=== PATIENT | female | born 1995 | race African-American/Black ===

== ENCOUNTER 2016-06-15 22:03 | Emergency (ER) | payer OTHER ==
[~2016-06-15] VITALS: Ht 160 cm; Wt 64.4 kg
[~2016-06-15 22:03] MED LIST: ALBUTEROL SULF8.5 GM INH; AZITHROMYCIN250 MG PO
--- NOTE | 2016-06-15 23:03 | Emergency Room Report ---
History of Present Illness General Chief Complaint: Pain Source: Patient Present Illness HPI Ankle pain for 3 days. No meds taken no trauma. 7/10, aching, mainly when ambulating or twisting/stressing. Worse when standing. No fever. Never before. No rashes. No calf swelling or tenderness. No meds taken. Not . No NVD, dysuria. Allergies: Coded Allergies: No Known Allergies (Unverified , 12/30/11) Patient History Past Medical History: see triage record Pertinent Family History: other - no gout Social History Narrative student Last Menstrual Period: 05/17/16 Now: No Reviewed Nursing Documentation: PMH: Agreed, PSxH: Agreed Nursing Documentation-PMH Past Medical History: No Stated History Review of Systems All Other Systems: negative except mentioned in HPI Physical Exam Vital Signs Date Time Temp Pulse Resp B/P Pulse Ox O2 Delivery O2 Flow Rate FiO2 06/15/16 22:36 98.2 62 16 101/57 100 Room Air General Appearance: well appearing, no apparent distress Head: normocephalic, atraumatic Eyes: bilateral eye PERRL, bilateral eye normal inspection ENT: hearing grossly normal, normal voice, moist mucus membranes Neck: full range of motion, supple Respiratory: no respiratory distress, speaking full sentences Musculoskeletal: digits/nails normal, normal range of motion, no calf tenderness, pelvis stable, other - tenderness lateral maleolus. No 5th MT tenderness. No point tend and able to ambulate Neurologic: alert, normal gait Psychiatric: mood/affect normal Skin: no rash, other - no warmth martell joint Medical Decision Making Diagnostic Impression: Primary Impression: Right ankle pain Qualified Codes: M25.571 - Pain in right ankle and joints of right foot ER Course Patient presents with non-traumatic ankle pain. Ddx: sprain, tendonitis. Exam against fracture or neuroma. Based on Darke ankle rules, no x-ray indicated. No risk of gout. No evidence of cellulitis. Air splint applied by tech. Position excellent with improvement. Neurovasc checked by me and normal. Patient stable for outpatient observation and treatment. Last Vital Signs Date Time Temp Pulse Resp B/P Pulse Ox O2 Delivery O2 Flow Rate FiO2 06/15/16 23:20 98.2 72 16 110/58 100 Room Air Status: improved Disposition: HOME, SELF-CARE Condition: Improved Scripts Acetaminophen (Tylenol) 325 Mg Tablet 650 MG ORAL Q6H Y for Prn Pain/Headache/Temp > 101, #30 TAB 0 Refills Prov: Tutu Lazcano M.D. 06/15/16 Ibuprofen* (MOTRIN*) 600 Mg Tablet 600 MG ORAL Q6H Y for For Pain, #20 TAB Prov: Tutu Lazcano M.D. 06/15/16 Tutu Lazcano M.D. Jun 15, 2016 23:03
[2016-06-15] MEDS ORDERED: IBUPROFEN600 MG ORAL (23:07)
[2016-06-15] MEDS ORDERED: TYLENOL325 MG ORAL (23:07)
[2016-06-15 23:15] VITALS: BP 110/58
[2016-06-15 23:20] VITALS: BP 110/58
== END 2016-06-15 23:20 | disposition home or self-care (01) ==
LOC: EMR 23:08
DX: M25.571 Pain in right ankle and joints of right foot (principal)
CPT/HCPCS: 29540; 99284

== ENCOUNTER 2016-10-01 20:34 | Emergency (ER) | payer OTHER ==
[~2016-10-01] VITALS: Ht 160 cm; Wt 65.8 kg
[~2016-10-01 20:34] MED LIST changes: +IBUPROFEN600 MG ORAL; +KEFLEX500 MG ORAL; +NITROFURANTOIN100 M2 ORAL; +TYLENOL325 MG ORAL
[2016-10-01] MEDS ORDERED: NKM (20:48)
--- NOTE | 2016-10-01 20:57 | Emergency Room Report ---
History of Present Illness General Chief Complaint: General Complaint Source: Patient Present Illness HPI The patient presents with a lump in her right hand. It's been there for about 30 days. It's painful when it's touched. She's been taking ibuprofen. She denies any trauma. No fevers or rash. No numbness. Pain 8/10. Worse when touched and dependent. She is right-handed. Last period was September 07. No NVD, dysuria, chest or abdominal pain. No lymph node swelling. Allergies: Coded Allergies: No Known Allergies (Unverified , 12/30/11) Patient History Past Medical History: see triage record Social History: Denies: smoking Social History Narrative home Last Menstrual Period: September 07, 2016 Now: No Reviewed Nursing Documentation: PMH: Agreed, PSxH: Agreed Nursing Documentation-PMH Past Medical History: No Stated History Review of Systems Constitutional: Denies: fever Musculoskeletal: Reports: see HPI Skin: Reports: see HPI Neurological: Reports: see HPI All Other Systems: negative except mentioned in HPI Physical Exam Vital Signs Date Time Temp Pulse Resp B/P Pulse Ox O2 Delivery O2 Flow Rate FiO2 10/01/16 20:43 98.2 62 17 105/60 99 Room Air Sp02 EP Interpretation: reviewed, normal General Appearance: well appearing, no apparent distress Head: normocephalic, atraumatic Eyes: bilateral eye PERRL, bilateral eye normal inspection ENT: hearing grossly normal, normal voice, moist mucus membranes Neck: full range of motion, supple Respiratory: no respiratory distress, speaking full sentences Musculoskeletal: digits/nails normal, gait/station normal, normal range of motion, other - Nodule on the radial side of the index middle carpal. Does not appear attached to the tendon. Slight tender to palpation Neurologic: alert, motor strength/tone normal, sensory intact, normal gait Psychiatric: mood/affect normal Skin: no rash Medical Decision Making Diagnostic Impression: Primary Impression: Neuroma ER Course Patient presents with a nodule in the right hand. For 30 days. Doesn't appear attached to the tendon. Differential includes neuroma, bony abnormality, hematoma amongst others.. This does not appear infectious. We'll obtain an x- ray. She will be given motrin. Xray normal. Improved with treatment. Stable for outpatient observation and treatment Other X-Ray Diagnostic Results X-Ray ordered: hand # of Views/Limited Vs Complete: 3 View EP Interpretation: Yes Interpretation: no fractures, no dislocation, no soft tissue swelling Indication: Pain Impression: No acute disease Interpreting ER Provider: Electronically signed by Tutu Lazcano MD Last Vital Signs Date Time Temp Pulse Resp B/P Pulse Ox O2 Delivery O2 Flow Rate FiO2 10/01/16 22:13 98.2 17 105/60 99 Room Air 10/01/16 20:43 62 Status: improved Disposition: HOME, SELF-CARE Condition: Improved Scripts Acetaminophen With Codeine (T#3) (TYLENOL #3 TAB*) Y Tab 1 TAB ORAL Q8H Y for For Pain, #10 TAB Prov: Tutu Lazcano M.D. 10/01/16 Ibuprofen* (MOTRIN*) 600 Mg Tablet 600 MG ORAL Q6H Y for For Pain, #20 TAB Prov: Tutu Lazcano M.D. 10/01/16 Tutu Lazcano M.D. Oct 01, 2016 20:57
[2016-10-01] MEDS ORDERED: ACETAMINOPHEN-1 EAC1 ORAL (22:04)
[2016-10-01] MEDS ORDERED: IBUPROFEN600 MG ORAL (22:04)
[2016-10-01 22:13] VITALS: BP_SYST 1; BP_SYST 105; BP_DIAS 1; BP_DIAS 60
--- NOTE | 2016-10-02 09:31 | Diagnostic Imaging Report ---
Indications: Nontraumatic right hand pain, lump adjacent to second metacarpal Technique: 3 views of the right hand. Findings: Comparison: None. No fracture, dislocation, lytic destruction, periosteal reaction, surrounding soft tissue swelling, or other acute changes are demonstrated. No deformity, alignment abnormality, arthritic change, soft tissue calcification, or other chronic changes are demonstrated. IMPRESSION: Negative right hand series.
== END 2016-10-01 22:10 | disposition home or self-care (01) ==
LOC: EMR 21:11
DX: D36.10 Benign neoplasm of peripheral nerves and autonomic nervous system, unspecified (principal)
CPT/HCPCS: 99284

== ENCOUNTER 2017-02-21 18:30 | Emergency (ER) | payer OTHER ==
[~2017-02-21] VITALS: Ht 160 cm; Wt 68.0 kg
[~2017-02-21 18:30] MED LIST changes: +ACETAMINOPHEN-1 EAC1 ORAL; +NKM
[2017-02-21 18:33] VITALS: BP 110/66
--- NOTE | 2017-02-21 19:02 | Emergency Room Report ---
History of Present Illness General Chief Complaint: Abdominal Pain Source: Patient Present Illness HPI 21-year-old female with no sig pmhx p/w nausea vomiting diarrhea States that she had 2 episodes of vomiting 2 days ago, nonbilious nonbloody, also had diarrhea Is complaining of burning epigastric pain after vomiting, intermittent. No relieving or exacerbating factors. Severity is 5/10. Denies fever, chills. No hx of abdominal surgeries. No hx of endoscopies/colonoscopies. No recent travel and no recent antibiotic use Allergies: Coded Allergies: No Known Allergies (Unverified , 12/30/11) Patient History Past Medical History: see triage record Past Surgical History: none Pertinent Family History: none Last Menstrual Period: 02/12/17 Now: No : 0 Reviewed Nursing Documentation: PMH: Agreed, PSxH: Agreed Nursing Documentation-PMH Past Medical History: No Stated History Review of Systems All Other Systems: negative except mentioned in HPI Physical Exam Vital Signs Date Time Temp Pulse Resp B/P (MAP) Pulse Ox O2 Delivery O2 Flow Rate FiO2 02/21/17 18:33 98.1 65 18 110/66 98 Room Air Sp02 EP Interpretation: reviewed, normal General Appearance: normal inspection, well appearing, no apparent distress, alert, GCS 15, non-toxic Head: normocephalic, atraumatic Eyes: bilateral eye normal inspection, bilateral eye PERRL, bilateral eye EOMI ENT: normal ENT inspection, normal pharynx, normal voice, moist mucus membranes Neck: normal inspection, full range of motion, supple Respiratory: normal inspection, lungs clear, normal breath sounds, no respiratory distress, no retraction, no wheezing, speaking full sentences, chest symmetrical Cardiovascular #1: normal inspection, regular rate, rhythm, no edema, normal capillary refill Cardiovascular #2: 2+ radial (R), 2+ radial (L) Gastrointestinal: normal inspection, non tender, soft, non-distended, no guarding Musculoskeletal: normal inspection, back normal, normal range of motion, non- tender Neurologic: normal inspection, alert, oriented x3, responsive, motor strength/ tone normal, sensory intact, normal gait, speech normal Psychiatric: normal inspection, judgement/insight normal, memory normal Skin: normal inspection, normal color, no rash, warm/dry, well hydrated, normal turgor Medical Decision Making Diagnostic Impression: Primary Impression: Nausea vomiting and diarrhea Additional Impression: Urinary tract infection ER Course 21-year-old female nausea vomiting diarrhea Differential Diagnosis: Gastritis, gastroenteritis, UTI/pyelo At this time abdomen is soft nontender, not likely to have acute intra- abdominal surgical pathology, will hold CT Plan: Basic labs, ua, ekg IVF ER course: Patient has remained stable during ED stay. Pain improved. Repeat abdominal exam is nontender. Tolerating PO +UTI on labs Disposition: Patient is to be discharged to home with macrobid Patient is instructed to follow up with their primary care doctor within 5 days. Strict return precautions discussed with patient such as fever, chills, worsening/severe abdominal pain, nausea, vomiting, black or bloody stools, which may indicate severe illness. Patient verbalizes understanding and agrees with plan. Please note that this Emergency Department Report was dictated using [employer] inspector technology software, occasionally this can lead to erroneous entry secondary to interpretation by the dictation equipment Rhythm Strip EP Interpretation: Yes Rate: 56 Rhythm: NSR, no PVCs, no ectopy Laboratory Tests Test 02/21/17 19:00 02/21/17 19:08 Urine Color Yellow Urine Appearance Slightly cloudy Urine pH 6 (4.5-8.0) Urine Specific Anselmo 1.020 (1.005-1.035) Urine Protein 1+ (NEGATIVE) H Urine Glucose (UA) Negative (NEGATIVE) Urine Ketones Negative (NEGATIVE) Urine Occult Blood Negative (NEGATIVE) Urine Nitrite Negative (NEGATIVE) Urine Bilirubin Negative (NEGATIVE) Urine Urobilinogen 1 MG/DL (0.0-1.0) H Urine Leukocyte Esterase 3+ (NEGATIVE) H Urine RBC 2-4 /HPF (0 - 2) H Urine WBC 15-20 /HPF (0 - 2) H Urine Squamous Epithelial Cells Moderate /LPF (NONE/OCC) H Urine Bacteria Moderate /HPF (NONE) H Urine HCG, Qualitative Negative White Blood Count 5.5 K/UL (4.8-10.8) Red Blood Count 4.53 M/UL (4.20-5.40) Hemoglobin 12.8 G/DL (12.0-16.0) Hematocrit 40.8 % (37.0-47.0) Mean Corpuscular Volume 90 FL (80-99) Mean Corpuscular Hemoglobin 28.3 PG (27.0-31.0) Mean Corpuscular Hemoglobin Concent 31.4 G/DL (32.0-36.0) L Red Cell Distribution Width 10.9 % (11.6-14.8) L Platelet Count 301 K/UL (150-450) Mean Platelet Volume 4.7 FL (6.5-10.1) L Neutrophils (%) (Auto) 55.9 % (45.0-75.0) Lymphocytes (%) (Auto) 28.2 % (20.0-45.0) Monocytes (%) (Auto) 13.7 % (1.0-10.0) H Eosinophils (%) (Auto) 0.5 % (0.0-3.0) Basophils (%) (Auto) 1.7 % (0.0-2.0) Sodium Level 142 MMOL/L (136-145) Potassium Level 4.1 MMOL/L (3.5-5.1) Chloride Level 105 MMOL/L (98-107) Carbon Dioxide Level 30 MMOL/L (21-32) Anion Gap 7 mmol/L (5-15) Blood Urea Nitrogen 11 mg/dL (7-18) Creatinine 1.1 MG/DL (0.55-1.30) Estimate Glomerular Filtration Rate > 60 mL/min (>60) Glucose Level 82 MG/DL (74-106) Calcium Level 8.8 MG/DL (8.5-10.1) Total Bilirubin 0.3 MG/DL (0.2-1.0) Aspartate Amino Transferase (AST) 18 U/L (15-37) Alanine Aminotransferase (ALT) 19 U/L (12-78) Alkaline Phosphatase 48 U/L (46-116) Total Protein 7.6 G/DL (6.4-8.2) Albumin 3.5 G/DL (3.4-5.0) Globulin 4.1 g/dL Albumin/Globulin Ratio 0.9 (1.0-2.7) L Lipase 160 U/L (73-393) Last Vital Signs Date Time Temp Pulse Resp B/P (MAP) Pulse Ox O2 Delivery O2 Flow Rate FiO2 02/21/17 18:33 98.1 65 18 110/66 98 Room Air Disposition: HOME, SELF-CARE Condition: Improved Scripts Nitrofurantoin Monohyd/M-Cryst* (MACROBID 100 MG*) 100 Mg Capsule 100 MG ORAL EVERY 12 HOURS for 7 Days, #21 CAP 0 Refills Prov: Isrrael Gavin M.D. 02/21/17 Isrrael Gavin M.D. Feb 21, 2017 19:02
[2017-02-21 19:24] LABS: BASOPHILS % (AUTO) 1.7 % (0.0-2.0); EOSINOPHILS % (AUTO) 0.5 % (0.0-3.0); LYMPHOCYTES % (AUTO) 28.2 % (20.0-45.0); MEAN CORPUSCULAR HEMOGLOBIN 28.3 PG (27.0-31.0); MEAN CORPUSCULAR HGB CONC 31.4 G/DL (32.0-36.0); MEAN CORPUSCULAR VOLUME 90 FL (80-99); MEAN PLATELET VOLUME 4.7 FL (6.5-10.1); MONOCYTES % (AUTO) 13.7 % (1.0-10.0); NEUTROPHILS % (AUTO) 55.9 % (45.0-75.0); PLATELET COUNT 301 K/UL (150-450); RED BLOOD COUNT 4.53 M/UL (4.20-5.40); RED CELL DISTRIBUTION WIDTH 10.9 % (11.6-14.8); WHITE BLOOD COUNT 5.5 K/UL (4.8-10.8)
[2017-02-21 19:29] LABS: APPEARANCE,URINE SLIGHTLY CLOUDY; KETONES,URINE NEGATIVE (NEGATIVE); LEUKOCYTE ESTERASE ,URINE 3+ (NEGATIVE); NITRITE,URINE NEGATIVE (NEGATIVE); PH,URINE 6 (4.5-8.0); PROTEIN,URINE 1+ (NEGATIVE); UROBILINOGEN,URINE 1 MG/DL (0.0-1.0)
[2017-02-21 19:34] LABS: ANION GAP 7 mmol/L (5-15); CALCIUM 8.8 MG/DL (8.5-10.1); CARBON DIOXIDE 30 MMOL/L (21-32); CHLORIDE 105 MMOL/L (98-107); CREATININE 1.1 MG/DL (0.55-1.30); GLOMERULAR FILTRATION RATE > 60 mL/min (>60); POTASSIUM 4.1 MMOL/L (3.5-5.1); SODIUM 142 MMOL/L (136-145)
[2017-02-21 19:41] LABS: ALANINE AMINOTRANSFERASE 19 U/L (12-78); ALBUMIN/GLOBULIN RATIO 0.9 (1.0-2.7); ASPARTATE AMINO TRANSFERASE 18 U/L (15-37); LIPASE 160 U/L (73-393); TOTAL PROTEIN 7.6 G/DL (6.4-8.2)
[2017-02-21 19:44] LABS: WBC,URINE 15-20 /HPF (0 - 2)
[2017-02-21 19:45] VITALS: BP 106/62
[2017-02-21 19:45] LABS: BACTERIA,URINE MODERATE /HPF; SQUAMOUS EPITHELIAL CELL,UR MODERATE /LPF (NONE/OCC)
[2017-02-21] MEDS ORDERED: NITROFURANTOIN100 M2 ORAL (19:48)
[2017-02-21 20:23] VITALS: BP 106/72
== END 2017-02-21 20:23 | disposition home or self-care (01) ==
LOC: EMR 19:11
DX: R11.2 Nausea with vomiting, unspecified (principal); R19.7 Diarrhea, unspecified; N39.0 Urinary tract infection, site not specified
CPT/HCPCS: 36415; 80053; 81003; 81025; 83690; 85025; 87086; 96374; 99284

== ENCOUNTER 2017-03-19 15:46 | Emergency (ER) | payer OTHER ==
[~2017-03-19] VITALS: Ht 160 cm; Wt 68.0 kg
[2017-03-19 16:00] VITALS: BP 111/72
--- NOTE | 2017-03-19 16:17 | Emergency Room Report ---
History of Present Illness General Chief Complaint: Sore Throat Source: Patient Present Illness HPI 21 YO Female presents to the ED c/o cough x 3 weeks intermittent in nature, 7/ 10 in severity Sore throat, nasal congestion x2 days with associated chills denies fevers reports cousin has similar symptoms denies recent travel denies neck pain or stiffness denies nausea vomiting photophobia or productive sputum. Up to vaccinations. Denies CP, Palpitations, LOC, AMS, dizziness, Changes in Vision, Sensation, paresthesias, or a sudden severe headache. Allergies: Coded Allergies: No Known Allergies (Unverified , 12/30/11) Patient History Past Medical History: see triage record Past Surgical History: none Pertinent Family History: none Last Menstrual Period: 03/17/17 Immunizations: UTD Reviewed Nursing Documentation: PMH: Agreed, PSxH: Agreed Nursing Documentation-PMH Past Medical History: No Stated History Review of Systems All Other Systems: negative except mentioned in HPI Physical Exam Vital Signs Date Time Temp Pulse Resp B/P (MAP) Pulse Ox O2 Delivery O2 Flow Rate FiO2 03/19/17 15:53 98.1 85 18 111/72 98 Room Air Sp02 EP Interpretation: reviewed, normal General Appearance: no apparent distress, alert, GCS 15, non-toxic Head: normocephalic, atraumatic Eyes: bilateral eye normal inspection, bilateral eye PERRL ENT: hearing grossly normal, normal pharynx, no angioedema, normal voice, TMs + canals normal, uvula midline, moist mucus membranes, nasal congestion, pharyngeal erythema Neck: full range of motion, no meningismus, no bony tend Respiratory: chest non-tender, lungs clear, normal breath sounds, speaking full sentences Cardiovascular #1: regular rate, rhythm Rectal: deferred Musculoskeletal: back normal, gait/station normal, normal range of motion, non- tender Neurologic: alert, oriented x3, responsive, motor strength/tone normal, sensory intact, speech normal Skin: normal color, no rash, warm/dry, well hydrated Lymphatic: no adenopathy Medical Decision Making PA Attestation Dr. Gavin is my supervising Physician whom patient management has been discussed with. Diagnostic Impression: Primary Impression: Upper respiratory infection Qualified Codes: J06.9 - Acute upper respiratory infection, unspecified; B97.89 - Other viral agents as the cause of diseases classified elsewhere ER Course 21 YO Female presents to the ED c/o cough x 3 weeks intermittent in nature, 7/ 10 in severity Sore throat, nasal congestion x2 days with associated chills denies fevers reports cousin has similar symptoms denies recent travel denies neck pain or stiffness denies nausea vomiting photophobia or productive sputum. Up to vaccinations. Denies CP, Palpitations, LOC, AMS, dizziness, Changes in Vision, Sensation, paresthesias, or a sudden severe headache. Ddx considered but are not limited to URI, pneumonia, PE, strep pharyngitis, meningitis. Vital signs: Pt. is afebrile, the remaining VS are WNL H&PE are most consistent with URI- no meningeal signs, oropharynx is not involved, no evidence of bacterial infection at this time. ORDERS: none required at this time, the diagnosis is clinical ED INTERVENTIONS: None required at this time. DISCHARGE: At this time pt. is stable for d/c to home. Will provide printed patient care instructions, and any necessary prescriptions. Care plan and follow up instructions have been discussed with the patient prior to discharge. Last Vital Signs Date Time Temp Pulse Resp B/P (MAP) Pulse Ox O2 Delivery O2 Flow Rate FiO2 03/19/17 15:53 98.1 85 18 111/72 98 Room Air Disposition: HOME, SELF-CARE Condition: Stable Scripts Acetaminophen* (TYLENOL EXTRA STRENGTH*) 500 Mg Tablet 500 MG ORAL Q6H, #20 TAB 0 Refills Prov: Kalli Fierro P.A. 03/19/17 Loratadine (CLARITIN) 10 Mg Tab.rapdis 10 MG ORAL DAILY, #14 TAB Prov: Kalli Fierro P.A. 03/19/17 Benzonatate* (TESSALON PERLE*) 100 Mg Capsule 100 MG ORAL THREE TIMES A DAY, #20 PERLE Prov: Kalli Fierro P.A. 03/19/17 Codeine/Promethazine Hcl* (PROMETHAZINE-CODEINE SYRUP*) 118 Ml Syrup 5 ML ORAL Q6H Y for For Cough, #120 ML 0 Refills Prov: Kalli Fierro P.A. 03/19/17 Patient Instructions: Sore Throat, Upper Respiratory Infection, Adult, Easy-to- Read Additional Instructions: Take medications as directed. Follow up with a Primary Care Provider in 3-5 days, even if your symptoms have resolved. --Please review list of primary care clinics, if you do not already have a primary care provider Return sooner to ED if new symptoms occur, or current symptoms become worse. Do not drink alcohol, drive, or operate heavy machinery while taking Cough Syrup as this may cause drowsiness. - Please note that this Emergency Department Report was dictated using [employer] technology software, occasionally this can lead to erroneous entry secondary to interpretation by the dictation equipment. Klali Fierro Mar 19, 2017 16:17
[2017-03-19] MEDS ORDERED: CLARITIN10 M1 ORAL (16:19)
[2017-03-19] MEDS ORDERED: TESSALON PERLE100 MG ORAL (16:19)
[2017-03-19] MEDS ORDERED: TYLENOL EXTRA500 MG ORAL (16:19)
[2017-03-19] MEDS ORDERED: PROMETHAZINE-C118 M1 ORAL (16:19)
[2017-03-19 16:37] VITALS: BP 111/72
== END 2017-03-19 16:37 | disposition home or self-care (01) ==
LOC: EMR 16:26
DX: J06.9 Acute upper respiratory infection, unspecified (principal)
CPT/HCPCS: 99284

== ENCOUNTER 2017-05-11 11:28 | Emergency (ER) | payer OTHER ==
[~2017-05-11] VITALS: Ht 160 cm; Wt 65.8 kg
[~2017-05-11 11:28] MED LIST changes: +CLARITIN10 M1 ORAL; +PROMETHAZINE-C118 M1 ORAL; +TESSALON PERLE100 MG ORAL; +TYLENOL EXTRA500 MG ORAL
--- NOTE | 2017-05-11 12:13 | Emergency Room Report ---
History of Present Illness General Chief Complaint: Pain Source: Patient Present Illness HPI 21 yo female patient presents to ER complaining of left middle finger pain for "a few hours". Patient reports injury left hand but is unsure of mechanism of action. Patient reports finger began to become painful and swollen. Patient reports difficulty removing ring from hand secondary to swelling. Patient complains of pain with movement; decreased movement secondary to pain. Patient denies erythema, ecchymosis, no warmth to touch. Patient denies fever, chest pain, SOB, LOC. Allergies: Coded Allergies: No Known Allergies (Unverified , 12/30/11) Patient History Past Medical History: see triage record Last Menstrual Period: 04/20/17 Now: No Immunizations: UTD Reviewed Nursing Documentation: PMH: Agreed, PSxH: Agreed Nursing Documentation-PMH Past Medical History: No Stated History Review of Systems All Other Systems: negative except mentioned in HPI Physical Exam Vital Signs Date Time Temp Pulse Resp B/P (MAP) Pulse Ox O2 Delivery O2 Flow Rate FiO2 05/11/17 11:45 98.1 61 18 112/62 96 Room Air Sp02 EP Interpretation: reviewed, normal General Appearance: no apparent distress, alert, GCS 15, non-toxic Head: normocephalic, atraumatic Eyes: bilateral eye normal inspection, bilateral eye PERRL ENT: hearing grossly normal, normal pharynx, no angioedema, normal voice Neck: full range of motion, supple/symm/no masses Respiratory: chest non-tender, lungs clear, normal breath sounds, speaking full sentences Cardiovascular #1: regular rate, rhythm, no edema Cardiovascular #2: 2+ radial (R), 2+ radial (L) Musculoskeletal: back normal, digits/nails normal, gait/station normal, decreased range of motion - secondary to pain, swelling - left hand middle finger, other - NVI, cap refill <2seconds, tender - left hand middle finger PIP Neurologic: alert, oriented x3, responsive, motor strength/tone normal, sensory intact, speech normal Psychiatric: mood/affect normal Skin: normal color, no rash, warm/dry, well hydrated Medical Decision Making PA Attestation Dr. Hamilton is my supervising Physician whom patient management has been discussed with. Diagnostic Impression: Primary Impression: Finger fracture, right ER Course Pt. presents to the ED c/o left index finger pain. Ddx considered but are not limited to fracture, sprain, strain, contusion. Vital signs: are WNL, pt. is afebrile ORDERS: An X-ray of the left hand was ordered, results show fracture at base of middle phalanx of middle finger of left hand per the preliminary radiology report. ED INTERVENTIONS: Toradol Finger Splint was applied.The affected finger was checked afterwards by me showing good alignment and support with distal neurovascular functioning intact. DISCHARGE: -Rx provided for Ibuprofen for pain symptoms. At this time pt. is stable for d/c to home. Will provide printed patient care instructions, and any necessary prescriptions. Patient instructed to follow with primary care provider in 3 - 5 days and to request further orthopedic follow-up. Care plan and follow up instructions have been discussed with the patient prior to discharge. Patient instructed on TAVARES method: rest, ice, compression, elevation. Patient instructed to NWB. Take medications as directed. Patient questions asked and answered. ER precautions given, patient instructed to return to ER immediately for any new or worsening of symptoms. Other X-Ray Diagnostic Results Other X-Ray Diagnostic Results : X-Ray ordered: right hand # of Views/Limited Vs Complete: 3 View Indication: Pain EP Interpretation: Yes PA Xray: Interpretation reviewed, by supervising MD, and agrees with findings. Interpretation: no dislocation, other Impression: Other - fracture at base of middle phalanx of left ring finger PA Scribe Text Nicanor Berumen PA-C Last Vital Signs Date Time Temp Pulse Resp B/P (MAP) Pulse Ox O2 Delivery O2 Flow Rate FiO2 05/11/17 11:45 98.1 61 18 112/62 96 Room Air Disposition: HOME, SELF-CARE Condition: Stable Scripts Ibuprofen* (MOTRIN*) 600 Mg Tablet 600 MG ORAL Q8H Y for For Pain, #30 TAB 0 Refills Prov: Jaime Berumen 05/11/17 Patient Instructions: Finger Fracture, [id number] Additional Instructions: Patient instructed to follow up with primary care provider and discuss further referral to orthopedics. Patient instructed on RICE method: rest, ice, compression, elevation. Patient instructed to NWB. Take medications as directed. Patient questions asked and answered. ER precautions given, patient instructed to return to ER immediately for any new or worsening of symptoms. Jaime Berumen May 11, 2017 12:13
[2017-05-11] MEDS ORDERED: IBUPROFEN600 MG ORAL (13:14)
[2017-05-11] MEDS ORDERED: Ketorolac 30mg Inj IM ONE (13:30)
[2017-05-11 13:50] VITALS: BP 112/62
--- NOTE | 2017-05-11 13:57 | Diagnostic Imaging Report ---
Indication: Reason For Exam: PAIN Technique: 3 views left hand Comparison: none Findings: No acute fractures. No dislocations. Joint spaces are preserved. Impression: Negative
== END 2017-05-11 13:55 | disposition home or self-care (01) ==
LOC: EMR 12:36
DX: S62.623A Displaced fracture of middle phalanx of left middle finger, initial encounter for closed fracture (principal); X58.XXXA Exposure to other specified factors, initial encounter; Y92.9 Unspecified place or not applicable
CPT/HCPCS: 73130; 96372; 99283; J1885

== ENCOUNTER 2017-12-16 15:06 | Emergency (ER) | payer OTHER ==
[~2017-12-16] VITALS: Ht 160 cm; Wt 63.5 kg
[2017-12-16 15:38] VITALS: BP 101/65
--- NOTE | 2017-12-16 15:53 | Emergency Room Report ---
History of Present Illness General Chief Complaint: Female Urogenital Problems Source: Patient Present Illness HPI 30-year-old female with no past medical history here presenting malodorous clear vaginal discharge for the past few days. Denies new sexual partner and denies past positive STD denies dysuria or urinary frequency vaginal pruritus. Denies suprapubic tenderness, CVA tenderness, nausea vomiting, fever or chills, denies vaginal ulcers Allergies: Coded Allergies: No Known Allergies (Unverified , 12/30/11) Patient History Past Medical History: see triage record Past Surgical History: none Last Menstrual Period: 11/19/17 Now: No Reviewed Nursing Documentation: PMH: Agreed; PSxH: Agreed Nursing Documentation-PMH Past Medical History: No Stated History Review of Systems All Other Systems: negative except mentioned in HPI Physical Exam Vital Signs Date Time Temp Pulse Resp B/P (MAP) Pulse Ox O2 Delivery O2 Flow Rate FiO2 12/16/17 15:11 99.0 61 16 101/65 100 Room Air 99.0 Sp02 EP Interpretation: reviewed, normal General Appearance: normal inspection, well appearing, no apparent distress, alert Head: normocephalic Eyes: bilateral eye normal inspection, bilateral eye PERRL ENT: normal ENT inspection, hearing grossly normal Neck: normal inspection, full range of motion, supple Respiratory: normal inspection, chest non-tender, lungs clear, no wheezing Cardiovascular #1: normal inspection, no murmur Gastrointestinal: normal inspection, non tender, soft, no mass Rectal: deferred Genitourinary: no CVA tenderness, adnexa normal, ext genitalia/vag normal, other - clear discharge noted Musculoskeletal: normal inspection, back normal Neurologic: normal inspection, alert, oriented x3 Skin: normal inspection, normal color, no rash Lymphatic: normal inspection, no adenopathy Medical Decision Making PA Attestation all diagnosis and treatment plans are reviewed and discussed with my supervising physician Dr. Meza Diagnostic Impression: Primary Impression: Vaginitis ER Course 30-year-old female with no past medical history here presenting malodorous clear vaginal discharge for the past few days. Denies new sexual partner and denies past positive STD denies dysuria or urinary frequency vaginal pruritus. Denies suprapubic tenderness, CVA tenderness, nausea vomiting, fever or chills, denies vaginal ulcers Ddx considered but are not limited to BV, yeast infection, GC chlamydia Vital signs: are WNL, pt. is afebrile H&PE are most consistent with beefy ORDERS: GC chlamydia, UA, Flagyl ED INTERVENTIONS: None required at this time. DISCHARGE: At this time pt. is stable for d/c to home. Will provide printed patient care instructions, and any necessary prescriptions. Care plan and follow up instructions have been discussed with the patient prior to discharge. avoid taking alcohol with Flagyl, follow with PCP for further evaluation Many bacteria UA 3+ leuks Last Vital Signs Date Time Temp Pulse Resp B/P (MAP) Pulse Ox O2 Delivery O2 Flow Rate FiO2 12/16/17 15:38 99.0 78 16 101/65 100 Room Air 99.0 Disposition: HOME, SELF-CARE Condition: Stable Scripts Metronidazole* (FLAGYL*) 500 Mg Tablet 500 MG ORAL EVERY 12 HOURS for 7 Days, #14 TAB Prov: Rancho Sommer 12/16/17 Patient Instructions: Vaginitis Additional Instructions: and take medication as directed to avoid drinking alcohol while taking the medication follow with the primary care provider for further testing painful intercourse to be assessed by the primary care provider possible pelvic ultrasound. Rancho Sommer Dec 16, 2017 15:53
[2017-12-16] MEDS ORDERED: METRONIDAZOLE500 MG ORAL (15:54)
[2017-12-16 16:06] VITALS: BP 101/65
[2017-12-16 16:14] LABS: APPEARANCE,URINE SLIGHTLY CLOUDY; BILIRUBIN, URINE NEGATIVE (NEGATIVE); COLOR,URINE PALE YELLOW; GLUCOSE, URINE (UA) NEGATIVE (NEGATIVE); KETONES,URINE NEGATIVE (NEGATIVE); LEUKOCYTE ESTERASE ,URINE 3+ (NEGATIVE); NITRITE,URINE NEGATIVE (NEGATIVE); PH,URINE 6 (4.5-8.0); PROTEIN,URINE NEGATIVE (NEGATIVE); UROBILINOGEN,URINE NORMAL MG/DL (0.0-1.0)
== END 2017-12-16 16:06 | disposition home or self-care (01) ==
LOC: EMR 15:45
DX: N76.0 Acute vaginitis (principal)
CPT/HCPCS: 81001; 87086; 99283